=== PATIENT | female | born 1945 | race Caucasian/White ===

== ENCOUNTER → 2016-04-16 | Outpatient (CLI) | payer OTHER ==
--- NOTE | 2016-04-16 11:00 | DX ---
DEXA Bone Mineral Densitometry Clinical Indications: Postmenopausal, family history of osteoporosis, back pain, Synthroid for thyro id dysfunction, screening for osteoporosis Comparison: None Technique: Bone Mineral Densitometry (BMD) by Dual Energy X-Ray Absorptiometry (DEXA) was performed utilizing the [employer] scanner. The lumbar spine was evaluated in the AP projection. The bilat eral hips and forearm were evaluated in the AP projection. Vertebral fracture assessment was also pe rformed. AP Lumbar Spine: The L1, L2 and L3 vertebral bodies were evaluated. L4 is excluded due to degenerati ve sclerosis BMD: 0.772 gm/cm2 T-score: -3.3 SD Z-score: -1.5 SD AP Left Hip: Neck BMD: 0.649 gm/cm2 T-score: -2.8 SD Z-score: -1.0 SD AP Right Hip: Total BMD: 0.716 gm/cm2 T-score: -2.3 SD Z-score: -0.7 SD AP Left Forearm, 03/23: BMD: 0.704 gm/cm2 T-score: -2.0 SD Z-score: -0.2 SD Vertebral Fracture Assessment: No significant fracture deformity. There is degenerative spurring in the the L4-L5 level. Conclusion: Considering the lowest measured site, the patient is osteoporotic and at increased risk for fracture. The ten year FRAX risk for any major osteoporotic fracture is 26.8% and for a hip fracture is 9.8%. Any bone loss in this patient is probably related to aging or estrogen deficiency. To prevent osteoporosis and to promote the patient's bone density, the following recommendations shou ld be considered: 1. Pursue a regular regimen of weightbearing and muscle strengthening exercises in order to reduce t he risk of falls and fractures (as tolerated by the patient's general medical condition). 2. Ensure that daily dietary calcium uptake is maximized. 3. Consider checking the serum vitamin D level. Ensure that intake of vitamin D is 800 IU per day 4. Consider follow-up DEXA scan in two years to assess the rate of bone loss in this patient.
--- NOTE | 2016-04-19 10:36 | MA ---
Screening Digital Mammogram With iCAD Analysis Clinical Indications: Routine screening. Technique: Standard cephalocaudal and mediolateral oblique projections were obtained. This examinatio n was processed by the iCAD computer aided detection system. Comparison: No previous studies are available for comparison. Breast density: Type D; Extremely dense. Findings: CAD was reviewed. No masses, suspicious calcifications or other signs of malignancy are id entified. Vascular calcifications are noted. Impression: Negative mammogram. BI-RADS 1. Recommendation: Routine screening in one year as long as physical examination is negative in this pat ient with extremely dense breast parenchyma. [facility] will send a result letter to the patient. Dense breast parenchyma diminishes mammographic sensitivity. Negative mammography should not preclude additional workup of a clinically suspicious finding. The patient's information is entered into a reminder system with a target due date for her next mammo gram.
== END ==
LOC: FIMAGING 09:14
PROVIDERS: ATTEND Nurse Practitioner
DX: Z12.31 Encounter for screening mammogram for malignant neoplasm of breast (principal); Z13.820 Encounter for screening for osteoporosis; M81.0 Age-related osteoporosis without current pathological fracture; M54.5 Low back pain; E07.9 Disorder of thyroid, unspecified; Z78.0 Asymptomatic menopausal state; Z82.62 Family history of osteoporosis
CPT/HCPCS: G0202

== ENCOUNTER → 2018-05-04 | Outpatient (CLI) | payer OTHER ==
[~2018-05-04] MED LIST: LIDOCAINE 1% 300 MG/30 ML SDV ONE
== END ==
LOC: FIMAGING 14:32
PROVIDERS: ATTEND Radiology Diagnostic Radiology
PROC: 0U913ZZ Drainage of Left Ovary, Percutaneous Approach (ICD-10-PCS; principal; 2018-05-04)
DX: N83.292 Other ovarian cyst, left side (principal)

== ENCOUNTER → 2018-05-05 | Outpatient (CLI) | payer OTHER | LOC: FIMAGING 09:53 | PROVIDERS: ATTEND Nurse Practitioner | DX: M81.0 Age-related osteoporosis without current pathological fracture (principal); Z78.0 Asymptomatic menopausal state ==

== ENCOUNTER → 2018-05-08 | Outpatient (CLI) | payer OTHER | LOC: FIMAGING 08:27 | PROVIDERS: ATTEND Nurse Practitioner | DX: Z12.31 Encounter for screening mammogram for malignant neoplasm of breast (principal) ==

== ENCOUNTER → 2018-09-04 | Outpatient (CLI) | payer OTHER | LOC: FIMAGING 14:03 ==